=== PATIENT | female | born 1945 | race Caucasian/White ===

== ENCOUNTER → 2017-01-02 | Outpatient (CLI) | payer MEDICARE, OTHER ==
[~2017-01-02] MED LIST: ASPIRIN 81MG TA81 MG PO; CARVEDILOL 25MG25 MG PO; COUMADIN 5MG TAB5 MG PO; DILTIAZEM 180180 MG PO; GLIPIZIDE 5MG TA5 MG PO; HYDROCHLOROTHIA25 M1 PO; KLOR-CON M2020 MEQ PO; METFORMIN 500M500 M1 PO; VALSARTAN160 MG PO; ZYRTEC10 M2 PO
--- NOTE | 2017-01-02 13:33 | RADIOLOGY REPORT PS360 ---
KNEE-4 OR 5 VIEWS-LT HISTORY: LT KNEE PAIN ORDERING PHYSICIAN: Chang Funez MD PATIENT AGE: 72 years FINDINGS: Standing views performed No fracture or dislocation. No lytic or blastic change. Normal mineralization. There are mild tricompartmental osteoarthritic changes greater at the medial compartment. Mild lateral translation of the tibia x 7 mm IMPRESSION: Osteoarthritis of the left knee as described above not significant change from 08/02/2016
== END ==
LOC: RAD 12:38
DX: M25.562 Pain in left knee (principal)